=== PATIENT | female | born 1960 | race Two or more races ===

== ENCOUNTER 2024-07-10 22:25 | Emergency (ER) | payer BC, SELFPAY ==
[2024-07-10 22:48] VITALS: BP 123/75; PULSE 88; RESP 18; TEMP 36.8; O2SAT 96; BMI 28.3
[2024-07-10] MEDS: Erythromycin Op Oint 0.5% 1 GM PACKET LEFT EYE (23:39)
[2024-07-10] MEDS: AMOXICILLIN/POT CLAV 875 TABLET 1 TAB PO (23:40)
--- NOTE | 2024-07-11 02:21 | EDNOTE_ITS ---
ED Eye Problem RME/HPI General Chief complaint: Eye Problems Stated complaint: Cat scratch in Eye Time Seen by Provider: 07/10/24 23:25 Arrival date/time: 07/10/24 22:25 64F with history of DM and psych presents to ED with L eye possible cat scratch. Patient has had a tetanus shot in the past 5 years. Patient denies vision changes. Limitations: no limitations Related Data Home Medications ?Medication ?Instructions ?Recorded ?Confirmed alprazolam 0.5 mg tablet mg 12/22/22 atorvastatin 10 mg tablet 10 mg PO EVERYOTHERDAY 12/22/22 12/22/22 ergocalciferol (vitamin D2) 1,250 12/22/22 mcg (50,000 unit) capsule metformin 500 mg tablet 500 mg PO DAILY 12/22/22 12/23/22 paroxetine mesylate(menop.sym) 7.5 7.5 mg PO DAILY 12/22/22 12/22/22 mg capsule semaglutide 0.25 mg or 0.5 mg (2 0.5 mg subcut QWEEK 12/22/22 12/22/22 mg/3 mL) subcutaneous pen injector (Ozempic) Previous Rx's ?Medication ?Instructions ?Recorded amoxicillin 875 mg-potassium 1 tab PO BID 7 days #14 tabs 07/10/24 clavulanate 125 mg tablet erythromycin 5 mg/gram (0.5 %) eye 1 applic ophthalmic (eye) QID 7 07/10/24 ointment days #3.5 grams Allergies Allergy/AdvReac Type Severity Reaction Status Date / Time povidone-iodine Allergy Severe Rash Verified 12/23/22 08:38 latex Allergy Rash Verified 12/23/22 08:38 Review of Systems Review of Systems Systems Reviewed: All systems reviewed, normal except as documented Constitutional Constitutional: Reports system reviewed and no additional complaints, except as documented, Denies fever(s) and Denies headache(s) ENT Ears, Nose, Mouth, and Throat: Denies disequilibrium and Denies headache(s) Cardiovascular Cardiovascular: Reports system reviewed and no additional complaints, except as documented, Denies chest pain and Denies dyspnea Respiratory Respiratory: Reports system reviewed and no additional complaints, except as documented, Denies cough and Denies dyspnea Gastrointestinal Gastrointestinal: Reports system reviewed and no additional complaints, except as documented, Denies abdominal pain, Denies nausea and Denies vomiting Neurologic Neurologic: Reports system reviewed and no additional complaints, except as documented, Denies confusion, Denies disequilibrium and Denies headache(s) Psychiatric Psychiatric: Denies confusion Past Medical History Past Medical History NEUROLOGIC: Negative Neurological Disorders or Seizures CARDIAC: Positive Cardiac Disorders and Hypercholesterolemia; Negative Congestive Heart Failure RESPIRATORY: Negative Chronic Obstructive Pulmonary Disease (COPD) GASTROINTESTINAL: Negative Gastrointestinal Disorders GENITOURINARY: Negative Genitourinary Disorders or Renal Disease REPRODUCTIVE: Positive Breast Cancer (LEFT BREAST) MUSCULOSKELETAL: Positive Carpal Tunnel Syndrome (BILATERAL); Negative Musculoskeletal Disorders ENDOCRINE: Positive Endocrine Disorders and Diabetes Mellitus Type 2; Negative Diabetes Mellitus Type 1 OTHER HISTORY: Positive Chicken Pox, Cancer and Breast Cancer (LEFT BREAST); Negative Hospitalization, Falls, Blood Transfusions or Anesthesia Reactions Family History FAMILY HISTORY: Positive Family Cancer (DAD LUNG CANCER); Negative Family Anesthesia Reaction Surgical History SURGICAL: Positive Hysterectomy Social History SMOKING STATUS: Never smoker ED Exam General Limitations: Present no limitations General appearance: Present alert and in no apparent distress Head Head exam: Present atraumatic Eye Eye exam: Present PERRL and EOMI Expanded Eye Exam Sclera/Conjunctival: left: hemorrhage (mild) ENT ENT exam: Present normal exam, normal oropharynx and mucous membranes moist Neck Neck exam: Present normal inspection, full ROM and trachea midline Chest Chest inspection: Present normal inspection and symmetric chest wall rise Respiratory Respiratory exam: Present normal lung sounds bilaterally Cardiovascular Cardiovascular exam: Present regular rate, normal rhythm and normal heart sounds Abdominal Exam Abdominal exam: Present soft and normal bowel sounds Extremities Exam Extremities exam: Present normal inspection and full ROM Back Exam Back exam: Present normal inspection and full ROM Neurological Exam Neurological exam: Present alert, oriented X3 and CN II-XII intact Psychiatric Psychiatric exam: Present normal affect and normal mood Skin Skin exam: Present warm, dry, intact and normal color Course Quality Measures none Orders Category Date Time Status Amoxicillin/Pot Clav 875 [Augmentin 875] Med 07/10/24 23:25 Discontinued 1 tab PO X1 ONE Erythromycin Op Oint 0.5% Med 07/10/24 23:25 Discontinued 1 gm LEFT EYE X1 ONE Vital Signs Vital signs: Vital Signs Temperature 98.2 F 07/10/24 22:48 Pulse Rate 88 07/10/24 22:48 Respiratory Rate 18 07/10/24 22:48 Blood Pressure 123/75 07/10/24 22:48 Pulse Oximetry (%) 96 07/10/24 22:48 Oxygen Delivery Method Room Air 07/10/24 22:48 O2 at 96% on RA and WNLs Eye MDM Narrative MDM Narrative:: 64F with history of DM and psych presents to ED with L eye possible cat scratch. Patient has had a tetanus shot in the past 5 years. Patient denies vision tapia es. Physical exam reveals mild L subconjunctival hemorrhage. Normal pupil response and EOM. Small scratch on L cheek. Patient is afebrile, calm, and alert. Patient's both eyes open w/o trouble so unlikely corneal injury, but will treat with oral and topical ABX due to DM status. Counseled to see eye doctor soon. Patient data External records reviewed:: [facility] previous records Clinical information provided by:: patient Social determinants that could affect healthcare access:: none Patient has the following chronic illnesses:: DM How is presenting disease/condition affected by chronic disease/condition?: exacerbated by Evaluation data The following diagnostics were reviewed and interpreted by me:: other (specify) (none) Lab and/or radiology exams considered but not ordered:: not ordered Interpretation Summary: n/a Medications / Prescriptions Medications or Prescriptions considered but not ordered:: ordered Medication administrations:: Medication Administration History Discontinued Medications Amoxicillin/Clavulanate Potassium (Amoxicillin/Pot Clav 875 Tablet) 1 tab PO X1 ONE Stop: 07/10/24 23:26 Last Admin: 07/10/24 23:40 Dose: 1 tab Documented By: JAYLYN Erythromycin (Erythromycin Op Oint 0.5% 1 Gm Packet) 1 gm LEFT EYE X1 ONE Stop: 07/10/24 23:26 Last Admin: 07/10/24 23:39 Dose: 1 gm Documented By: JAYLYN Co-signed By: THIERRY above Consultations Consultation(s) initiated? (list below): No Diagnosis Eye Problem Differential Diagnosis: corneal abrasion, conjunctivitis, acute iritis, hyphema, periorbital cellulitis, subconjunctival hemorrhage, glaucoma, corneal ulcer, ruptured globe and other (cat scratch) Most likely diagnosis given after review of the tests above:: cat scratch Admission Indicated Admission indicated?: not indicated Admission Request Was there a request for admission?: No Disposition Plan Disposition Plan: Discharge Discharge Attestation Discharge Attestation: The patient and all family members were given an opportunity to ask questions and understood the discharge instructions. Discharge instructions specifically effects, indications for sooner follow up or return to the emergency department, and the expected course of current diagnosis. Patient condition: Stable Discharge Plan Plan Patient Disposition: HOME (Self Care) Disposition Comment: Stable Prescriptions/Referrals Prescriptions/Med Rec: New amoxicillin-pot clavulanate 875-125 mg tablet 1 tab PO BID 7 Days Qty: 14 0RF erythromycin 5 mg/gram (0.5 %) ointment 1 applic ophthalmic (eye) QID 7 Days Qty: 3.5 0RF No Action metformin 500 mg tablet 500 mg PO DAILY Patient Comments: TAKE 1 TABLET BY MOUTH TWICE A DAY atorvastatin 10 mg tablet 10 mg PO EVERYOTHERDAY Patient Comments: TAKE 1 TABLET BY MOUTH EVERY DAY AT NIGHT alprazolam 0.5 mg tablet Patient Comments: TAKE 1 TABLET BY MOUTH TWICE A DAY NEEDED ergocalciferol (vitamin D2) 1,250 mcg (50,000 unit) capsule Patient Comments: TAKE 1 CAPSULE BY MOUTH ONE TIME PER WEEK paroxetine mesylate(menop.sym) 7.5 mg capsule 7.5 mg PO DAILY Patient Comments: TAKE 1 CAPSULE BY MOUTH EVERY DAY Ozempic 0.25 mg or 0.5 mg (2 mg/3 mL) pen injector 0.5 mg SUBCUT QWEEK Patient Comments: INJECT 0.5MG SUBCUTANEOUSLY WEEKLY Problem List Clinical Impression: Cat scratch Patient/Caregiver Discharge Instructions Additional Instructions: Please follow-up with PCP within 24-48 hours and return immediately if symptoms worsen. Make sure to follow-up with eye doctor. Print Language: Chinese Stand Alone Forms: Patient Portal Info Letter BEBE/BOB Supervising Physician BEBE/BOB Supervising Physician: Dr. Fox
== END 2024-07-10 23:48 | disposition home or self-care (01) ==
LOC: SERX 07-11 01:02
PROVIDERS: Emergency Provider Emergency Medicine; PCP Internal Medicine
DX: S05.02XA Injury of conjunctiva and corneal abrasion without foreign body, left eye, initial encounter (principal); W55.03XA Scratched by cat, initial encounter
CPT/HCPCS: 99282; A9270

== ENCOUNTER 2024-08-29 10:59 | Outpatient (RCR) | payer BC, SELFPAY | END 2024-09-13 23:59 | disposition home or self-care (01) | LOC: SCTC 10:59 | PROVIDERS: PCP Internal Medicine; Referring Provider Internal Medicine; Visit Provider Nurse Practitioner Family | DX: Z08 Encounter for follow-up examination after completed treatment for malignant neoplasm (principal); Z85.3 Personal history of malignant neoplasm of breast; Z90.12 Acquired absence of left breast and nipple; M85.88 Other specified disorders of bone density and structure, other site; N63.25 Unspecified lump in the left breast, overlapping quadrants; Z92.3 Personal history of irradiation; K64.9 Unspecified hemorrhoids | CPT/HCPCS: 99212; G0463 ==

== ENCOUNTER 2024-09-09 05:40 | Day surgery (SDC) | payer OTHER, SELFPAY ==
--- NOTE | 2024-09-04 14:31 | ESHP_ITS ---
RE: NATHANAEL ABBASI : 1960 DATE OF ADMISSION: 09/09/2024 CHIEF COMPLAINT: Numbness and tingling, right hand. 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 She has developed numbness and tingling in both hands. She is scheduled for right carpal tunnel release. PAST MEDICAL HISTORY: Reviewed. She is with four children. BLOOD TRANSFUSIONS: None. OPERATIONS: Hysterectomy with oophorectomy. Breast cancer surgery 11 years ago, left breast. ALLERGIES: NONE. MEDICATIONS: 1. Metformin 500 mg one daily. 2. Atorvastatin. 3. Paroxetine. 4. Ozempic. MAJOR MEDICAL ILLNESSES: Diabetes began at age 60. FAMILY HISTORY: Positive for diabetes. Father with heart disease, myocardial infarction. There is a family history of hypertension, stroke, lymphoma, lung cancer. SOCIAL HISTORY: Does not smoke. Does not drink. REVIEW OF SYSTEMS: The patient had intentional weight loss. She denies chest pain, shortness of breath, orthopnea, paroxysmal nocturnal dyspnea, or dyspnea on exertion. No productive cough, hemoptysis. No hematemesis, hematochezia, melena, or black tarry bowel movements. She does have intermittent problems with constipation. Denied dysuria, prior hematuria. Denies stroke, seizures, syncope episodes. No change in wounds or rashes. Numbness or tingling in the right hand. PHYSICAL EXAMINATION: GENERAL: Shows a well-developed, well-nourished woman who appears to be considerably younger than her stated age. NECK: She moves her head side to side without difficulty. EXTREMITIES: Full range of motion of her upper extremities. She has good rotator cuff function, biceps, triceps, wrist flexors, sensory and motor intrinsics of the hand are intact. She has a positive Phalen's test and positive Tinel's test on the right side. EMG and nerve conduction studies consistent with right carpal tunnel. ASSESSMENT: Right carpal tunnel syndrome. PLAN: Release of right carpal tunnel. I told her the surgery generally takes 10 to 12 minutes. We do it under a light general anesthetic. I described the risks of the procedure including the possibility of recurrence, no improvement, anesthetic complications including , painful scar, nerve injury. She understands and is willing to proceed. DT: 13:24:32 TT: 14:28:00 Ref: [id number] - TID: [id number]
--- NOTE | 2024-09-06 06:00 | EKG_ITS ---
[facility] Test Date: 2024-09-06 Pat Name: NATHANAEL ABBASI Department: Room: - Gender: Female Provider Network Analyst: RT STUDENT : 1960 Requested By: Onel Arias Order Number: [id number] Reading MD: Onel Arias Measurements Intervals Calvert Rate: 81 P: 55 NH: 135 QRS: 57 QRSD: 86 T: 57 QT: 367 QTc: 426 Interpretive Statements SINUS RHYTHM POSSIBLE LEFT ATRIAL ENLARGEMENT No previous ECG available for comparison /store/S0/[id number]/[id number].pdf
[2024-09-06 07:08] VITALS: BMI 29.3
[2024-09-06 08:30] LABS: Basophils % (Auto) 0 % (0-2.5); Eosinophils # (Auto) 0.1 Thou/mm3 (0.0-0.5); Eosinophils % (Auto) 4 % (0-10); Hematocrit 39.5 % (36.0-46.0); Hemoglobin 13.1 g/dL (12.0-16.0); Immature Granulocytes % (Auto) 0 % (0-0); Lymphocytes # (Auto) 1.4 Thou/mm3 (1.0-4.8); Lymphocytes % (Auto) 42 % (10-50); Mean Corpuscular HGB Conc 33.2 g/dl (31.0-37.0); Mean Corpuscular Volume 93 fL (80-100); Monocytes # (Auto) 0.4 Thou/mm3 (0.0-0.8); Monocytes % (Auto) 14 % (0-12); Neutrophils # (Auto) 1.3 Thou/mm3 (1.8-7.7); Neutrophils % (Auto) 40 % (37-80); Nucleated Red Blood Cell % 0 /100 WBC (0); Platelet Count 231 Thou/mm3 (140-440); RDW Standard Deviation 42.8 fL (36.4-46.3); Red Blood Count 4.23 Miln/mm3 (4.00-5.20); White Blood Count 3.3 Thou/mm3 (3.6-11.0)
[2024-09-06 08:56] LABS: Alanine Aminotransferase 33 U/L (10-49); Albumin, Serum 4.8 gm/dL (3.4-4.8); Albumin/Globulin Ratio 1.9 (1.2-2.2); Alkaline Phosphatase 100 U/L (46-116); Anion Gap 8 (7-16); Aspartate Amino Transferase 34 U/L (0-34); BUN/Creatinine Ratio 20 Ratio (12-20); Bilirubin,Total 0.4 mg/dL (0.3-1.2); Blood Urea Nitrogen 16 mg/dL (9-23); Calcium 9.9 mg/dL (8.3-10.6); Calcium (Corrected) 9.9 mg/dL (8.5-10.1); Carbon Dioxide 28.5 mMol/L (20.0-31.0); Chloride 104 mMol/L (98-107); Creatinine (Component) 0.8 mg/dL (0.6-1.3); Estimated Creatinine Clearance 60.2 mL/min (>60); Globulin 2.5 gm/dL (2.3-3.5); Glucose 98 mg/dL (74-106); Osmolality,Calculated 280 (275-295); Potassium 4.2 mMol/L (3.4-5.1); Sodium 140 mMol/L (136-145); Total Protein 7.3 gm/dL (5.7-8.2); eGFR > 60 See Note
[2024-09-06 09:01] LABS: Prothrombin Time 10.7 Seconds (9.0-12.2)
[2024-09-09] VITALS (7 sets, daily range): BP systolic 98–132; BP diastolic 59–77; PULSE 87–102; RESP 14–20; TEMP 36.3–36.7; O2SAT 96–100; BMI 28.6
[2024-09-09] MEDS: RINGERS LACTATED 1000 ML 1,000 ML 20 ML IV (06:12)
--- NOTE | 2024-09-09 07:25 | CHAP ---
Patient expressed gratitude for prayer before their procedure.
--- NOTE | 2024-09-09 08:43 | SUR.PHASEI ---
0843: Pt. AAOx4, vitals stable, breathing unlabored, no complaint of pain or nausea, dresing to right lower arm CDI, no active bleed noted, pt. able to wiggle bilateral fingers, cap refill to bilateral hands less than 3 seconds, bilaterla brachial pulses strong and regular, report received from Des ARREAGA and Dimitri HILLIARD.
--- NOTE | 2024-09-09 08:44 | PD.SUROPNT ---
Date of Procedure 09/09/24 Pre Op Diagnosis Right carpal tunnel syndrome Post Op Diagnosis Right carpal tunnel syndrome Procedure Release of right carpal tunnel Findings Thick transverse carpal ligament Procedure Description Patient was taken the operating room and the right hand was noted to be the correct extremity during the timeout procedure. She received 2 g of Ancef. Her right hand was prepped draped standard fashion. The entire her arm was elevated and exsanguinated with an Esmarch bandage. Tourniquet was inflated to 200 mmHg. Longitudinal incision was made over the palm. Palmar aponeurosis was divided. Transverse carpal ligament was identified and cut distally with a #15 blade and proximally into the distal antebrachial fascia using a small curved strabismus scissors. The nerve was pinched deep to the transverse carpal ligament. There was no hyperemia. There was no epineurial thickening. The wound was copiously irrigated with Betadine and saline solution. The tourniquet was released small bleeders were electrocoagulated. The wound was nice and dry. The wound was closed with 5-0 nylon suture. A bulky dressing was applied using Dakin soaked Kerlix sponge dry Kerlix sponges 4 inch cut bias and net dressing. Sponge needle counts correct. She was taken recovery room uneventfully Anesthesia GETA Drains o Implants none Pathology / specimen None IVF Infused 800 Urine Output 0 Estimated Blood Loss 3 Condition Stable Disposition PACU Surgeon Onel Caba MD Surgical Staff Operation Date: 09/09/24 07:30 Case Staff INDUSTRIAL MACHINE ASSEMBLER: Jerson Poon
--- NOTE | 2024-09-09 08:53 | SUR.PHASEI ---
0853 Report received from Gali HILLIARD
--- NOTE | 2024-09-09 08:53 | SUR.PHASEI ---
0853: Pt. resting, vitals stable, breathing unlabored, no complaint of pain or nausea, dressing to right lower arm CDI, no active bleed noted, report given to Do Zhang RN to resume care of pt.
--- NOTE | 2024-09-09 09:03 | SUR.PHASEI ---
0903 patient awake in bed, eating ice chips tolerating well
--- NOTE | 2024-09-09 09:35 | SUR.PHASEII ---
0935 Patient meets discharge criteria from recovery, awake and alert, breathing unlabored, vital signs stable, denies pain, dressing intact; no bleeding noted, patient provided arm sling for support, patient ate a jello and tolerated well, patient assisted with dressing into her clothing by her , discharge instructions given to patient and patients , signed discharge instructions. Patient given all her belongings prior to discharge, transported via wheelchair and left in a private vehicle.
== END 2024-09-09 09:35 | disposition home or self-care (01) ==
PROVIDERS: PCP Internal Medicine; Referring Provider Orthopaedic Surgery; Visit Provider Orthopaedic Surgery
PROC: (CPT 64721; principal; 2024-09-09 07:30)
DX: G56.01 Carpal tunnel syndrome, right upper limb (principal)
CPT/HCPCS: 29848; 36415; 80053; 85025; 85610; 85730; 93005; A4217; A4649; J0690; J2250; J2704; J2795; J3010; J3490; J7120; J0665

== ENCOUNTER → 2025-06-02 | Outpatient (CLI) | payer BC, SELFPAY ==
--- NOTE | 2025-06-02 10:00 | XR_ITS ---
Examination: Breast ultrasound complete, bilateral Date and time of exam: June 02, 2025, 1051 hours INDICATIONS: Diagnosis left breast cancer 2010 post mastectomy, left breast sonogram May 31, 2024 3:00 nodule 12 mm 6:00 nodule 10 mm Technique: Real-time grayscale ultrasonographic imaging bilateral breasts, including all 4 quadrants as well as nipple retroareolar and axillary regions. Findings: 3:00 nodule lobular margins 14 x 10 mm 6:00 nodule lobular margins 15 x 12 mm IMPRESSION: BI-RADS Category 3: Probably benign findings Recommend 1 additional 6-month left breast sonography follow-up to document continued stability of breast nodules described above
--- NOTE | 2025-06-02 11:15 | XR_ITS ---
Examination: Screening digital mammography, bilateral Computer aided detection 3-D breast Tomosynthesis, bilateral Date and time of exam: June 02, 2025, 1109 hours, compared to mammograms dating to May 29, 2020 Indication: Screening Technique: Nonmagnified MLO, CC views of the breasts to been obtained, reconstructed from 3-D Tomosynthesis images. R2 computer aided detection program utilized for evaluation of suspicious masses and/or abnormal calcifications. 3-D Tomosynthesis images obtained. Findings: Scattered areas of fibroglandular density. Stable calcifications fat necrosis left breast Stable appearing implants No interval suspicious masses Stable architectural distortion posterior left breast on the cc view consistent with patient's history of treated left breast cancer 2010 Impression: BI-RADS category II: Benign Findings. Recommend 1 year follow-up mammogram.
== END | disposition home or self-care (01) ==
PROVIDERS: PCP Internal Medicine; Referring Provider Internal Medicine; Visit Provider Internal Medicine
DX: Z12.31 Encounter for screening mammogram for malignant neoplasm of breast (principal); R92.323 Mammographic fibroglandular density, bilateral breasts; N63.25 Unspecified lump in the left breast, overlapping quadrants
CPT/HCPCS: 76641; 77063; 77067

== ENCOUNTER 2025-07-29 11:01 | Outpatient (RCR) | payer BC, SELFPAY | END 2025-08-13 23:59 | disposition home or self-care (01) | LOC: SCTC 11:01 | PROVIDERS: PCP Internal Medicine; Referring Provider Internal Medicine; Visit Provider Nurse Practitioner Family | DX: Z08 Encounter for follow-up examination after completed treatment for malignant neoplasm (principal); Z85.3 Personal history of malignant neoplasm of breast; Z90.12 Acquired absence of left breast and nipple; Z92.3 Personal history of irradiation; M85.88 Other specified disorders of bone density and structure, other site; N63.20 Unspecified lump in the left breast, unspecified quadrant | CPT/HCPCS: 99212; G0463 ==